=== PATIENT | female | born 1960 | race Caucasian/White ===

== ENCOUNTER 2016-12-12 12:10 | Day surgery (SDC) | payer OTHER ==
[~2016-12-12] VITALS: Ht 167.6 cm; Wt 108.0 kg
[~2016-12-12 12:10] MED LIST: ALBU8.5H2 INHALATION; DXM4T PO; IBUP-1827 PO; MILK87.5 PO; Sodium Chloride LOK Flush 10 mL Syringe IV PRN; fentaNYL-PF 50 mCg/mL 2 mL Inj IVPUSH PRN
[2016-12-12 12:47] VITALS: BP 136/79; PULSE 80; RESP 16; O2SAT 99
[2016-12-12] MEDS: 0.9% Sodium Chloride 1,000 ML IV PRN ×2 (13:04→13:18)
[2016-12-12 13:30] VITALS: BP 123/70; PULSE 70; RESP 16; O2SAT 100
[2016-12-12 13:40] VITALS: BP 105/64; PULSE 80; RESP 16; O2SAT 99
[2016-12-12 13:48] VITALS: BP 125/73; PULSE 72; RESP 16; O2SAT 100
--- NOTE | 2016-12-12 21:51 | ENDO ---
[address] [address] ENDOSCOPY PROCEDURE PATIENT: MAI DHILLON : 1960 MR#: [id number] ADMIT: 12/12/2016 JOB ID: [id number] DATE: 12/12/2016 PRIMARY PROVIDER: Anu Leonard DO PROCEDURE: Colonoscopy. INDICATIONS: A 56-year-old female with a personal history of colon polyps returning for surveillance. EQUIPMENT: PCF H 190 DL. SEDATION: 6 mg Versed and 125 mcg fentanyl. COMPLICATIONS: None identified. BOWEL PREPARATION: Fair, adequate exam. PROCEDURE INFORMATION: After the risks and benefits were explained, written and verbal informed consent was obtained. The patient was brought into the endoscopy suite and placed into the left lateral decubitus position. Sedation was achieved using the above-stated medications with the addition of oxygen via nasal cannula. A digital rectal examination was accomplished. No significant pathology appreciated. Normal anorectal sphincteric tone. No significant hemorrhoidal cushions. The scope was then introduced into the rectum and advanced to the cecum as identified by the appendiceal orifice and ileocecal valve. The scope was slowly withdrawn to carefully examine the mucosa for any defects or lesions. Retroflexed views were avoided in the rectum. Multiple direct views were made through the dentate line for exclusion of pathology. The colon was decompressed, the scope removed from the patient who tolerated the procedure well. FINDINGS: No significant polyps, mass lesions, or inflammatory features identified throughout. ENDOSCOPIC DIAGNOSES: Visually unremarkable colonoscopy to cecum. RECOMMENDATIONS: Considering personal history of colon polyps, repeat colonoscopy five years.
== END 2016-12-12 23:59 | disposition home or self-care (01) ==
LOC: END 12:10
PROVIDERS: ATTEND Internal Medicine Gastroenterology
DX: Z12.11 Encounter for screening for malignant neoplasm of colon (principal); Z86.010 Personal history of colon polyps
CPT/HCPCS: G0105; G0500; J7030